=== PATIENT | female | born 1960 | race Two or more races ===

== ENCOUNTER 2020-01-13 07:58 | Day surgery (SDC) | payer OTHER ==
[2020-01-13] VITALS (10 sets, daily range): BP systolic 100–139; BP diastolic 51–72
[~2020-01-13] VITALS: Ht 157.5 cm; Wt 78.5 kg
[2020-01-13] MEDS ORDERED: fentaNYL 100 mcg/2 mL IV ONE (07:59)
[2020-01-13] MEDS ORDERED: Midazolam 2mg/2ml Inj ONE (07:59)
[2020-01-13] MEDS ORDERED: Propofol 200mg/20ml IV ONE ×2 (08:00)
[2020-01-13] MEDS ORDERED: LR 1000ml ONE (08:00)
--- NOTE | 2020-01-13 08:19 | Short Stay Surgery H&P ---
History of Present Illness History of Present Illness Chief Complaint Abdominal pains/GERDs HPI Carol Moore is a 59 year old female who was admitted on for GERD/abdominal pains Patient History PAST MEDICAL HISTORY: (1) Rheumatoid arthritis (2) Hypertension (3) History of tubal ligation Review of Systems Cardiovascular: Reports: hypertension Respiratory: Reports: no symptoms Skeletal: Reports: rheumatoid arthritis, trauma Gastrointestinal: Reports: gastro esophageal reflux disease Genitourinary: Reports: no symptoms Neurologic: Reports: no symptoms Endocrine: Reports: no symptoms Hematologic: Reports: no symptoms Physical Exam Skin: normal HENT: normal Heart: normal Lungs: normal Abdomen: abnormal Extremities: normal Genitourinary: normal Plan Plan of Care Upper GI endoscopy and biopsy Preop Interventions None Summary of Findings See the reports Attestation Are the patient's medical conditions optimized for surgery? Attestation Response: yes Yani Martinez MD Jan 13, 2020 08:18
--- NOTE | 2020-01-13 08:20 | Pre-Procedure Note/Attestation ---
Pre-Procedure Note/Attestation Complete Prior to Procedure Planned Procedure: left Procedure Narrative: Examination of the upper GI tract via endoscopy Indications for Procedure Pre-Operative Diagnosis: R/O Peptic Ulcer/gastritis/esophagitis Attestation I attest that I discussed the nature of the procedure; its benefits; risks and complications; and alternatives (and the risks and benefits of such alternatives ), prior to the procedure, with the patient (or the patient's legal office machines sales representative). I attest that, if there was a reasonable possibility of needing a blood transfusion, the patient (or the patient's legal office machines sales representative) was given the [facility] standardized written summary, pursuant to the [place] Blood Safety Act ([place] Health and Safety Code # 1645, as amended). I attest that I re-evaluated the patient just prior to the surgery and that there has been no change in the patient's H&P, except as documented below: Yani Martinez MD Jan 13, 2020 08:20
--- NOTE | 2020-01-13 08:21 | Discharge Instructions ---
Discharge Instructions Discharge Instructions Follow up with: No need to follow with this doctor later For Congestive Heart Failure Reminder Report to your physician any weight gain of 5 pounds or more in one week. Yani Martinez MD Jan 13, 2020 08:21
--- NOTE | 2020-01-13 08:44 | Endoscopy Procedure Note ---
Endoscopy Procedure Note General Indication for Procedure: Abdominal pains/GERds/Dysphagia Procedures Performed: EGD - Minimal gastritis, otherwise normal upper GI. endoscopy. biopsy was taken per random from gastric body. Specimen: yes Pt Tolerated Procedure Well: Yes Estimated Blood Loss: none Anesthesia Anesthesiologist: Dr. Lino Anesthesia: moderate sedation Medications Medication Given: see anesthesia record Inserted Devices Implant(s) used?: No Quality Quality of Bowel Preparation: Excellent Was there any complications?: No GI Core Measures 50 yrs or older w/o bx or poly: Not Applicable 10yrs. F/U recommended: Not Applicable If not recommended, why?: Med reason:<3 yrs.: System Reason:<3 yrs.: Yani Martinez MD Jan 13, 2020 08:44
--- NOTE | 2020-01-13 08:52 | Anethesia Preoperative Eval ---
Anesthesia Pre-op PMH/ROS General Date of Evaluation: Jan 13, 2020 Time of Evaluation: 08:15 Anesthesiologist: Holland ASA Score: ASA 2 Mallampati Score Class I : Soft palate, uvula, fauces, pillars visible Class II: Soft palate, uvula, fauces visible Class III: Soft palate, base of uvula visible Class IV: Only hard plate visible Mallampati Classification: Class II Surgeon: Leatha Diagnosis: Abdominal pain Surgical Procedure: EGD Anesthesia History: none Family History: no anesthesia problems Allergies: Coded Allergies: No Known Allergies (Unverified , 01/13/20) Medications: see eMAR Patient NPO?: Yes Past Medical History Cardiovascular: Reports: HTN - mild; Denies: CAD, CA, valve dz, arrhythmia, other Pulmonary: Denies: asthma, COPD, HEATHER, other Gastrointestinal/Genitourinary: Reports: GERD; Denies: CRI, ESRD, other Neurologic/Psychiatric: Denies: dementia, CVA, depression/anxiety, TIA, other Endocrine: Denies: DM, hypothyroidism, steroids, other HEENT: Denies: cataract (L), cataract (R), glaucoma, [place] (L), [place] (R), other Hematology/Immune: Denies: anemia, DVT, bleeding disorder, other Musculoskeletal/Integumentary: Reports: OA Other: other - overweight PMH Narrative: as above PSxH Narrative: BTL Anesthesia Pre-op Phys. Exam Physician Exam Last Vital Signs Date Time Temp Pulse Resp B/P (MAP) Pulse Ox O2 Delivery O2 Flow Rate FiO2 01/13/20 08:34 97.7 75 18 139/57 98 Room Air Constitutional: NAD Neurologic: CN 2-12 intact Cardiovascular: RRR, no M/R/G Respiratory: CTA Gastrointestinal: S/NT/ND Airway Exam Mallampati Score: Class II MO: full Neck: flexible ROM: full Teeth: missing Dentures: no upper, no lower Anesthesia Pre-op A/P Labs see chart Studies Pre-op Studies: EKG - SR Risk Assessment & Plan Assessment: ASA 2 Plan: MAC Status Change Before Surgery: No Pre-Antibiotics Drug: none Kolby Lino MD Jan 13, 2020 08:52
--- NOTE | 2020-01-13 08:54 | Immediate Post-Op Evaluation ---
Immediate Post-Op Evalulation Immediate Post-Op Evalulation Procedure: EGD with Bx Date of Evaluation: Jan 13, 2020 Time of Evaluation: 08:53 IV Fluids: 400 Blood Products: none Estimated Blood Loss: none Urinary Output: none Blood Pressure Systolic: 108 Blood Pressure Diastolic: 56 Pulse Rate: 68 Respiratory Rate: 20 O2 Sat by Pulse Oximetry: 99 Temperature (Fahrenheit): 97.6 Pain Score (1-10): 1 Nausea: No Vomiting: No Complications none Patient Status: awake, patent, none Hydration Status: adequate Kolby Lino MD Jan 13, 2020 08:54
--- NOTE | 2020-01-13 10:00 | 48 Hour Post Anesthesia Eval ---
Post Anesthesia Evaluation Procedure: EGD with Bx Date of Evaluation: Jan 13, 2020 Time of Evaluation: 09:59 Blood Pressure Systolic: 122 0: 56 Pulse Rate: 62 Respiratory Rate: 20 Temperature (Fahrenheit): 97.6 O2 Sat by Pulse Oximetry: 98 Airway: patent Nausea: No Vomiting: No Pain Intensity: 1 Hydration Status: adequate Cardiopulmonary Status: stable Mental Status/LOC: patient returned to baseline Follow-up Care/Observations: n/a Post-Anesthesia Complications: none Follow-up care needed: ready to discharge Kolby Lino MD Jan 13, 2020 10:00
--- NOTE | 2020-01-13 14:00 | Pre-op HX & Phy Repo 2 SIG ---
DATE OF ADMISSION: 01/13/2020 HISTORY OF PRESENT ILLNESS: The patient is a 59-year-old female, who is being seen prior to undergoing the procedure of upper GI endoscopy for which she has been scheduled to receive for evaluation of gastrointestinal conditions that she has been complaining. 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 As such, she reported that she fell down and had injured her different parts of the body including the wrist and shoulder while she was carrying heavy boxes of candles. Subsequently, she received acupuncture therapy and further treatment and epidural injections, etc. This patient was examined by me initially approximately two to three weeks ago while she was still complaining of GI symptoms as she also does have today, which is basically complaining of experiencing pain over the epigastric area along with gastroesophageal reflux symptoms. She reports that this symptom was started right after her injury, which was occurred in 2012 and she was started on multiple medications including nonsteroidal anti-inflammatory agents and strong analgesics. She reports that the pain occasionally radiates towards the chest area and also she does have difficulty swallowing consistent with dysphagia. She however denies having any GI bleeding such as hematemesis, melena, or hematochezia. There are no changes in bowel movement with constipation or diarrhea, though she does have generalized abdominal pain for which she has not been worked up as yet. She reports that in the past she has been treated with acid-suppression medications such as famotidine, which seems to be helpful for controlling her GI symptoms. PAST MEDICAL HISTORY: She was recently diagnosed to have rheumatoid arthritis for which she is taking a special medication and also she has had a history of hypertension as well, which seems to be under good control at this time with proper medications. PAST SURGICAL HISTORY: Tubal ligation. ALLERGIES: None. CHILDHOOD DISEASES: As usual. FAMILY HISTORY: Nonsignificant. HABITS: She denies drinking alcohol or smoking cigarettes. MEDICATIONS: Famotidine 20 mg, prednisone 10 mg, amlodipine 5 mg, methotrexate 2.5 mg, vitamin D3 5000 unit, folate acid 1 mg with eye drops as well. She was also on hydroxychloroquine 200 mg once daily. REVIEW OF SYSTEMS: Basically, she complains of the tenderness over the joints and abdominal discomfort and pain. PHYSICAL EXAMINATION: GENERAL: At this time reveals alert, well-oriented female, who does not seem to be in any acute distress. She looks well developed and well nourished. VITAL SIGNS: Blood pressure 139/57, temperature 97.9, respiratory rate 18 per minute, pulse rate 75 per minute, oxygen saturation 98%. HEENT: Normocephalic. Pupils equal in size and reactive to light and accommodation. No visible jaundice. Buccal cavity, tongue midline, well hydrated. No ulcers. NECK: Supple. No JVD, thyromegaly, or adenopathy. CHEST: Clear to auscultation and percussion. No rales or rhonchi. HEART: S1, S2 normal. Regular rhythm. No gallops or murmur. ABDOMEN: Obese, but soft. There are areas of tenderness over the upper and lower part of the abdomen, but mostly in the epigastric area. No organomegaly. No palpable mass. No percussion tenderness. EXTREMITIES: Within normal limits. NEUROLOGICAL: Unremarkable. INITIAL PREOPERATIVE IMPRESSION: 1. Abdominal pain, epigastric pain of uncertain etiology, rule out NSAID-induced gastropathy, peptic ulcer disease, gastritis. 2. Dysphagia, possibly secondary to gastroesophageal reflux, rule out NSAID-induced esophagitis. 3. History of bodily injury, work related. 4. Hypertension. 5. Rheumatoid arthritis. RECOMMENDATIONS: The applicant at this time seems to be quite stable to undergo the procedure of upper GI endoscopy for which she has been scheduled. She understands the risks and benefits and will sign the consent for this procedure. Said Jessie Martinez DR: BUSHRA JOB#: [id number] CC: SMITA
--- NOTE | 2020-01-13 14:15 | Operative Note - Dictated ---
DATE OF OPERATION: 01/13/2020 SURGEON: Yani Martinez M.D. PROCEDURE: Esophagogastroduodenoscopy with biopsy. PREOPERATIVE DIAGNOSIS: Abdominal pain, dysphagia, epigastric pain, rule out peptic ulcer disease. POSTOPERATIVE DIAGNOSIS: Mild generalized gastritis, otherwise normal upper GI endoscopy. Biopsy was taken per random from gastric body. MEDICATION USED: Per Dr. Lino, anesthesiologist. INSTRUMENT: GIF Olympus upper GI video endoscope. DESCRIPTION OF PROCEDURE: The patient after arriving an endoscopy unit, was still told about risks and benefits of the procedure, which she accepted and signed informed consent. At this time, she was put on the left lateral decubitus position. After adequate IV sedation, the scope was gently passed through the cricopharyngeal area, was lodged into the upper esophagus and gradually advanced towards gastroesophageal junction. The entire length of the esophagus looked normal and no pathology was found. No ulceration, stricture, polyps, tumors, etc. noted. GE junction also looked normal. No evidence of Jalloh's or hiatal hernia. Subsequently, the scope was advanced into the stomach. Gastric cavity was distended with insufflation of air and gradually the areas of the fundus and the body and the antrum were examined. The area, which revealed evidence of minimal gastritis. However, there was no polyps, tumors, bleeding sites, hemangiomas, ulcers, etc. A retroflexion maneuver was also applied. The area of the gastroesophageal junction was examined in a closer fashion, which revealed normal findings. Finally, one random biopsy from gastric body obtained and the scope was subsequently passed through the antrum and pushed through the pylorus. First and second portion of duodenum were found to be completely normal. At this time, the scope was pulled out and procedure was terminated. The patient tolerated the procedure well and left the endoscopy room in a good condition. Yani Martinez M.D. DR: BUSHRA JOB#: [id number] CC:
== END 2020-01-13 09:45 | disposition home or self-care (01) ==
LOC: GAS 07:58
DX: K29.50 Unspecified chronic gastritis without bleeding (principal); M06.9 Rheumatoid arthritis, unspecified; I10 Essential (primary) hypertension; Z79.899 Other long term (current) drug therapy; K21.9 Gastro-esophageal reflux disease without esophagitis; M19.90 Unspecified osteoarthritis, unspecified site; E66.3 Overweight; Z68.31 Body mass index [BMI] 31.0-31.9, adult
CPT/HCPCS: 43239; J2250; J2704; J3010; J7120; 94003; 94150